=== PATIENT | female | born 1980 ===

== ENCOUNTER 2021-05-29 09:00 | Outpatient (CLI) | payer OTHER ==
[~2021-05-29 09:00] MED LIST: CYCLOBENZAPRINE10 MG PO; DICLOFENAC POTA50 MG PO; GUMSOL SPRAY30 ML MM; TORADOL60 MG IM; ZITHROMAX200 MG PO
== END 2021-05-29 09:30 | disposition home or self-care (01) ==
LOC: PPH VACUNA 09:00
PROVIDERS: ATTEND Emergency Medicine Pediatric Emergency Medicine
DX: Z23 Encounter for immunization (principal)